=== PATIENT | female | born 1955 | race Caucasian/White ===

== ENCOUNTER 2016-04-22 16:10 | Emergency (ER) | payer OTHER ==
--- NOTE | 2016-04-22 16:57 | ERPHSYRPT ---
- History of Present Illness Time Seen by Provider: 04/22/16 16:57 Source: patient Exam Limitations: no limitations Patient Subjective Stated Complaint: pt co pain to left groin and bottom since last friday, no injury. pt states it hurts to sit Triage Nursing Assessment: pt alert , resp easy, skin w/d. was able to walk in , sitting is worse than movement Physician History: The patient is a 6-year-old female who presents with pain in her left groin left anterior and posterior thigh and left posterior knee for one week. She has a past medical history significant for a bulging disc with left sciatica. The pain she is experiencing currently is different than that she's had before. She denies any injury. Her past medical history significant for sciatica, diabetes. She also states she has leukemia that is in remission without any treatment. Timing/Duration: week(s) (1), gradual onset Severity: severe Modifying Factors: Improves With: nothing Associated Symptoms: denies symptoms Allergies/Adverse Reactions: No Known Drug Allergies Allergy (Unverified 04/22/16 16:24) Home Medications: Aspirin [Aspir 81] 81 mg DAILY 09/03/11 [History] Multivitamin [Multi-Day Vitamins] 1 ea DAILY 09/03/11 [History] Pregabalin 50 mg [Lyrica 50MG] 50 mg BID 09/03/11 [History] Metformin HCl 500 mg [Glucophage 500 MG] 500 mg BID 04/22/16 [History] Hx Tetanus, Diphtheria Vaccination/Date Given: No Hx Influenza Vaccination/Date Given: Yes Hx Pneumococcal Vaccination/Date Given: No Immunizations Up to Date: Yes - Review of Systems Constitutional: No Fever, No Chills Eyes: No Symptoms Ears, Nose, & Throat: No Symptoms Respiratory: No Cough, No Dyspnea Cardiac: No Chest Pain, No Edema, No Syncope Abdominal/Gastrointestinal: No Abdominal Pain, No Nausea, No Vomiting, No Diarrhea Genitourinary Symptoms: No Dysuria Musculoskeletal: Other (left thigh pain) Skin: No Rash Neurological: No Dizziness, No Focal Weakness, No Sensory Changes Psychological: No Symptoms Endocrine: No Symptoms Hematologic/Lymphatic: No Symptoms Immunological/Allergic: No Symptoms All Other Systems: Reviewed and Negative - Past Medical History Pertinent Past Medical History: Yes Neurological History: No Pertinent History ENT History: No Pertinent History Cardiac History: No Pertinent History Respiratory History: No Pertinent History Endocrine Medical History: Diabetes Type II Musculoskeletal History: Osteoarthritis GI Medical History: No Pertinent History History: No Pertinent History Psycho-Social History: No Pertinent History Female Reproductive Disorders: No Pertinent History Other Medical History: luekemia - Past Surgical History Past Surgical History: Yes Neuro Surgical History: Neurological Surgery Cardiac: No Pertinent History Respiratory: No Pertinent History Gastrointestinal: No Pertinent History Genitourinary: No Pertinent History Musculoskeletal: No Pertinent History Female Surgical History: Other Other Surgical History: back surg - Social History Smoking Status: Never smoker Exposure to second hand smoke: No Drug Use: none Patient Lives Alone: No - Female History Hx Last Menstrual Period: post - Nursing Vital Signs Nursing Vital Signs: Initial Vital Signs Temperature 97.8 F Temperature Source Oral Pulse Rate 76 Respiratory Rate 16 Blood Pressure [] 145/67 Pain Intensity 7 - Physical Exam General Appearance: moderate distress Eye Exam: PERRL/EOMI, eyes nml inspection Ears, Nose, Throat Exam: normal ENT inspection, TMs normal, pharynx normal, moist mucous membranes Neck Exam: normal inspection, non-tender, supple, full range of motion Respiratory Exam: normal breath sounds, lungs clear, No respiratory distress Cardiovascular Exam: regular rate/rhythm, normal heart sounds, normal peripheral pulses Gastrointestinal/Abdomen Exam: soft, normal bowel sounds, No tenderness, No mass Pelvic Exam: not done Rectal Exam: not done Back Exam: normal inspection, normal range of motion, other (straight leg raise is normal.), No CVA tenderness, No vertebral tenderness Extremity Exam: other (Tenderness to left groin, left anterior and posterior thigh, and posterior left knee.) Neurologic Exam: alert, oriented x 3, cooperative, normal mood/affect, nml cerebellar function, nml station & gait, sensation nml, No motor deficits Skin Exam: normal color, warm, dry, No rash Lymphatic Exam: No adenopathy SpO2 Interpretation: normal SpO2: 97 Oxygen Delivery: Room Air - CT Exams Abdomen/Pelvis CT Interpretation: Tele-radiologist Report (moderately distended gall bladder without stones, punctate nonobstructing R renal stone, fecal stasis without obstruction, per Dr Epperson.), Normal Appendix - Radiology Ultrasound Exam Left Venous Lower Extremity Ultrasound: discussed w/radiologist (discussed with cabinet installer), negative Ordered Tests: Active Orders 24 hr Category Date Time Status IV Insertion STAT Care 04/22/16 17:02 Active ABDOMEN AND PELVIS W/0 CONTRAS [CT] Stat Exams 04/22/16 18:34 Taken VENOUS UNILAT/LIMITED EXTREMIT [US] Stat Exams 04/22/16 17:05 Taken CBC W DIFF Stat Lab 04/22/16 17:22 Completed CMP Stat Lab 04/22/16 17:22 Completed D-DIMER QUANTITATION Stat Lab 04/22/16 17:22 Completed UA W/ MICROSCOPIC Stat Lab 04/22/16 17:22 Completed Medication Summary Discontinued Medications Generic Name Dose Route Start Last Admin Trade Name Meet PRN Reason Stop Dose Admin Morphine Sulfate 4 mg 04/22/16 17:02 04/22/16 17:20 Morphine Sulfate 4 Mg Inj IV 04/22/16 17:03 4 mg STAT ONE Administration Morphine Sulfate Confirm 04/22/16 17:18 Morphine Sulfate 4 Mg Inj Administered 04/22/16 17:19 Dose 4 mg .ROUTE .STK-MED ONE Ondansetron HCl 4 mg 04/22/16 17:02 04/22/16 17:20 Zofran 4 Mg/2 Ml Vial IV 04/22/16 17:03 4 mg STAT ONE Administration Ondansetron HCl Confirm 04/22/16 17:18 Zofran 4 Mg/2 Ml Vial Administered 04/22/16 17:19 Dose 4 mg .ROUTE .STK-MED ONE Lab/Rad Data: Laboratory Result Diagrams 04/22/16 17:22 04/22/16 17:22 Laboratory Results 04/22/16 04/22/16 04/22/16 Range/Units 17:22 17:22 17:22 WBC (4.0-10.5) K/mm3 RBC (4.1-5.4) M/mm3 Hgb (12.0-16.0) gm/dl Hct (35-47) % MCV (78-100) fl MCH (26-32) pg MCHC (32-36) g/dl RDW (11.5-14.0) % Plt Count (150-450) K/mm3 MPV (6-9.5) fl Gran % (36.0-66.0) % Lymphocytes % (24.0-44.0) % Monocytes % (0.0-12.0) % Eosinophils % (0.00-5.0) % Basophils % (0.0-0.4) % Basophils # (0-0.4) D-Dimer 0.317 (0.00-0.49) mg/L Sodium 144 (136-145) mEq/L Potassium 4.1 (3.5-5.1) mEq/L Chloride 103 (98-107) mEq/L Carbon Dioxide 30.2 (21-32) mEq/L Anion Gap 15.1 H (5-15) MEQ/L BUN 12 (9-20) mg/dL Creatinine 0.87 (0.55-1.30) mg/dl Estimated GFR > 60 ML/MIN Glucose 133 H (70-110) MG/DL Calcium 9.4 (8.5-10.1) mg/dL Total Bilirubin 0.3 (0.2-1.0) mg/dL AST 30 (15-37) U/L ALT 34 (12-78) U/L Alkaline Phosphatase 76 (46-116) U/L Serum Total Protein 7.7 (6.4-8.2) gm/dL Albumin 3.9 (3.4-5.0) g/dL Ur Collection Type CLEAN CATCH Urine Color YELLOW (YELLOW) Urine Appearance CLEAR (CLEAR) Urine pH 5.5 (5-6) Ur Specific [place] 1.020 (1.005-1.025) Urine Protein NEGATIVE (Negative) Urine Glucose (UA) NEGATIVE (NEGATIVE) mg/dL Urine Ketones NEGATIVE (NEGATIVE) Urine Nitrite NEGATIVE (NEGATIVE) Urine Bilirubin NEGATIVE (NEGATIVE) Urine Urobilinogen 0.2 (0-1) mg/dL Urine WBC (Auto) MODERATE (NEGATIVE) Urine RBC (Auto) NEGATIVE (0-5) Roverto/ul Urine Microscopic RBC 5-10 (0-2) /HPF Urine Microscopic WBC 15-25 (0-5) /HPF Ur Epithelial Cells MANY (FEW) /HPF Urine Bacteria MODERATE (NEGATIVE) /HPF Specimen Received 04/22/16 1720 04/22/16 Range/Units 17:22 WBC 9.1 (4.0-10.5) K/mm3 RBC 4.19 (4.1-5.4) M/mm3 Hgb 13.0 (12.0-16.0) gm/dl Hct 39.9 (35-47) % MCV 95.2 (78-100) fl MCH 31.0 (26-32) pg MCHC 32.6 (32-36) g/dl RDW 12.9 (11.5-14.0) % Plt Count 187 (150-450) K/mm3 MPV 10.5 H (6-9.5) fl Gran % 40.7 (36.0-66.0) % Lymphocytes % 51.7 H (24.0-44.0) % Monocytes % 6.6 (0.0-12.0) % Eosinophils % 1.0 (0.00-5.0) % Basophils % 0.0 (0.0-0.4) % Basophils # 0 (0-0.4) D-Dimer (0.00-0.49) mg/L Sodium (136-145) mEq/L Potassium (3.5-5.1) mEq/L Chloride (98-107) mEq/L Carbon Dioxide (21-32) mEq/L Anion Gap (5-15) MEQ/L BUN (9-20) mg/dL Creatinine (0.55-1.30) mg/dl Estimated GFR ML/MIN Glucose (70-110) MG/DL Calcium (8.5-10.1) mg/dL Total Bilirubin (0.2-1.0) mg/dL AST (15-37) U/L ALT (12-78) U/L Alkaline Phosphatase (46-116) U/L Serum Total Protein (6.4-8.2) gm/dL Albumin (3.4-5.0) g/dL Ur Collection Type Urine Color (YELLOW) Urine Appearance (CLEAR) Urine pH (5-6) Ur Specific [place] (1.005-1.025) Urine Protein (Negative) Urine Glucose (UA) (NEGATIVE) mg/dL Urine Ketones (NEGATIVE) Urine Nitrite (NEGATIVE) Urine Bilirubin (NEGATIVE) Urine Urobilinogen (0-1) mg/dL Urine WBC (Auto) (NEGATIVE) Urine RBC (Auto) (0-5) Roverto/ul Urine Microscopic RBC (0-2) /HPF Urine Microscopic WBC (0-5) /HPF Ur Epithelial Cells (FEW) /HPF Urine Bacteria (NEGATIVE) /HPF Specimen Received - Progress Progress: pain not gone completely - Departure Time of Disposition: 19:37 Departure Disposition: Home Clinical Impression: UTI (urinary tract infection) Condition: Stable Critical Care Time: No Additional Instructions: You have a UTI and constipation. You were given toradol 30 mg and rocephin 1 gm IV in the ER. Take cephalexin 500 mg twice a day for 10 days. Take Milk of Magnesia 2 Tbs at bedtime until cleared. Follow up in 2 days. Prescriptions: Cephalexin Monohydrate [Cephalexin] 500 mg PO BID #20 tablet
[2016-04-22] MEDS ORDERED: MORPHINE SULFATE 4 MG INJ IV ONE (17:02)
[2016-04-22] MEDS ORDERED: Zofran 4 MG/2 ML VIAL IV ONE (17:02)
[2016-04-22] MEDS ORDERED: MORPHINE SULFATE 4 MG INJ ONE (17:18)
[2016-04-22] MEDS ORDERED: Zofran 4 MG/2 ML VIAL ONE (17:18)
[2016-04-22 17:31] LABS: Granulocytes % 40.7 % (36.0-66.0); Lymphocytes % 51.7 % (24.0-44.0); Mean Cell Volume 95.2 fl (78-100); Mean Platelet Volume 10.5 fl (6-9.5); Monocytes % 6.6 % (0.0-12.0); Platelet Count 187 K/mm3 (150-450); Red Blood Count 4.19 M/mm3 (4.1-5.4); Red Cell Distribution Width 12.9 % (11.5-14.0); White Blood Count 9.1 K/mm3 (4.0-10.5)
[2016-04-22 18:04] LABS: Collection Type CLEAN CATCH; Ph 5.5 (5-6)
[2016-04-22 18:05] LABS: Bacteria MODERATE /HPF (NEGATIVE); COMPLETE URINE MICROSCOPIC? YES; Epithelial Cells MANY /HPF (FEW); WBC 15-25 /HPF (0-5)
[2016-04-22 18:26] LABS: ALBUMIN 3.9 g/dL (3.4-5.0); ALKALINE PHOSPHATASE 76 U/L (46-116); ANION GAP 15.1 MEQ/L (5-15); BILIRUBIN,TOTAL 0.3 mg/dL (0.2-1.0); BLOOD UREA NITROGEN 12 mg/dL (9-20); CHLORIDE 103 mEq/L (98-107); Carbon Dioxide 30.2 mEq/L (21-32); Glucose 133 MG/DL (70-110); Potassium 4.1 mEq/L (3.5-5.1); SGOT/AST 30 U/L (15-37); SGPT/ALT 34 U/L (12-78); SODIUM 144 mEq/L (136-145); Total Protein 7.7 gm/dL (6.4-8.2)
[2016-04-22] MEDS ORDERED: ROCEPHIN 1 Gm-D5w 50 ml Bag** 50 ML IV ONE ×2 (19:44→19:49)
[2016-04-22] MEDS ORDERED: TORAdol 30 mg Injection IV ONE (19:44)
[2016-04-22] MEDS ORDERED: TORAdol 30 mg Injection ONE (19:48)
[2016-04-22 20:04] VITALS: PULSE 68
[2016-04-22 20:34] VITALS: BP 128/62; O2SAT 97
--- NOTE | 2016-04-23 08:34 | XRAY ---
Indication: Left leg pain. Two-dimensional sonogram and color Doppler imaging of the major venous vessels of the left leg was performed. Comparison: None No thrombus seen in the examined deep venous vessels of the left leg including greater saphenous vein. Veins demonstrate normal compressibility. Venous waveforms are normal with and without augmentation. Impression: Left leg negative for DVT. Comment: Preliminary report was given.
--- NOTE | 2016-04-23 08:40 | XRAY ---
Indication: Left lower quadrant pain. Also chronic groin and back pain. Multiple contiguous axial images obtained through the abdomen and pelvis without contrast as ordered. Comparison: None Lung bases demonstrates minimal bibasilar fibrosis/scarring and calcified granulomas. No infiltrate, consolidation, or effusion. Heart is not enlarged. Noncontrasted stomach and bowel loops appear nonobstructed. Diffuse scattered colonic fecal debris throughout. Normal appendix. No free fluid/air. Gallbladder is moderately distended without gallstones or biliary distention. Punctate nonobstructing right renal calculus. Calcified splenic granulomas. Remaining liver, gallbladder, pancreas, spleen, adrenal glands, kidneys, ureters, bladder, and uterus appear unremarkable for noncontrast exam. Minimal aortic calcifications without AAA. Osseous structures intact with mild degenerative changes throughout the spine. No ventral or inguinal hernias. Impression: 1. Distended gallbladder without gallstones or biliary distention. Gallbladder sonogram may yield further information if clinically warranted. 2. No acute intra-abdominal/pelvic abnormalities on this noncontrast exam. 3. Fecal stasis without obstruction, nonobstructing right renal micro-calculus, and evidence for old granulomatous disease. CT DI 23.68
== END 2016-04-22 20:33 | disposition home or self-care (01) ==
LOC: ED 16:10
DX: N39.0 Urinary tract infection, site not specified (principal); C95.91 Leukemia, unspecified, in remission; E11.9 Type 2 diabetes mellitus without complications; Z79.84 Long term (current) use of oral hypoglycemic drugs; Z79.899 Other long term (current) drug therapy; M25.562 Pain in left knee; M79.652 Pain in left thigh; R10.9 Unspecified abdominal pain
CPT/HCPCS: 36000; 36415; 74176; 80053; 81000; 85025; 85379; 93971; 96374; 96375; 99284; J0696; J1885; J2270; J2405

== ENCOUNTER 2016-05-13 18:44 | Emergency (ER) | payer OTHER ==
[2016-05-13] MEDS ORDERED: ROCEPHIN 1 Gm-D5w 50 ml Bag** 50 ML IV ONE ×2 (19:34→20:07)
[2016-05-13] MEDS ORDERED: Norco 10/325 MG Tablet PO ONE (19:40)
--- NOTE | 2016-05-13 19:40 | ERPHSYRPT ---
- History of Present Illness Time Seen by Provider: 05/13/16 19:30 Source: patient Exam Limitations: clinical condition Patient Subjective Stated Complaint: PT REPORTS PINCHING FINGER WHILE WORKING ON BABY GAIT YESTERDAY-REPORTS WOKE THIS AM WITH A BLOOD BLISTER ON POINTER FINGER OF RIGHT HAND-REPORTS SEVERE PAIN-STATES SHE IS A DM Triage Nursing Assessment: PT PINK WARM ET [id number] TO MOVE EXTERMITY- BLISTERED AREA NOTED WITH NO DRAINAGE NOTED-RESP EASY ET NONLABORED Physician History: PATIENT PINCHED THE TIP OF HER RIGHT INDEX FINGER LAST NIGHT WHILE INSTALLING A BABY GATE, NOW HAS BRUISED BLISTER OVER TIP OF INDEX FINGER ASSOCIATED WITH RED STREAK. DENIES FEVER, CHILLS OR NIGHT SWEATS. Occurred: yesterday Method of Injury: other (PINCHED INJURY) Quality: constant Severity of Pain-Max: mild Severity of Pain-Current: mild Extremities Pain Location: 2nd finger: right Modifying Factors: Improves With: movement Associated Symptoms: none Allergies/Adverse Reactions: No Known Drug Allergies Allergy (Verified 05/13/16 18:56) Home Medications: Aspirin [Aspir 81] 81 mg PO DAILY 09/03/11 [History] Multivitamin [Multi-Day Vitamins] 1 ea PO DAILY 09/03/11 [History] Pregabalin 50 mg [Lyrica 50MG] 50 mg PO BID 09/03/11 [History] Metformin HCl 500 mg [Glucophage 500 MG] 500 mg BID 04/22/16 [History] Potassium Chloride 10 Meq Tab* [Klor Con 10 MEQ] 10 meq PO BID 05/13/16 [ History] Hx Tetanus, Diphtheria Vaccination/Date Given: Yes (1.5 YRS AGO) Hx Influenza Vaccination/Date Given: Yes Hx Pneumococcal Vaccination/Date Given: No Immunizations Up to Date: Yes - Review of Systems Constitutional: No Symptoms Musculoskeletal: Injury, Joint Pain, Joint Swelling Neurological: No Symptoms - Past Medical History Pertinent Past Medical History: Yes Neurological History: No Pertinent History ENT History: No Pertinent History Cardiac History: No Pertinent History Respiratory History: No Pertinent History Endocrine Medical History: Diabetes Type II Musculoskeletal History: No Pertinent History GI Medical History: No Pertinent History History: No Pertinent History Psycho-Social History: No Pertinent History Female Reproductive Disorders: No Pertinent History Other Medical History: luekemia - Past Surgical History Past Surgical History: Yes Neuro Surgical History: Neurological Surgery Cardiac: No Pertinent History Respiratory: No Pertinent History Gastrointestinal: No Pertinent History Genitourinary: No Pertinent History Musculoskeletal: No Pertinent History Female Surgical History: Other Other Surgical History: back surg - Social History Smoking Status: Never smoker Exposure to second hand smoke: No Drug Use: none Patient Lives Alone: No - Nursing Vital Signs Nursing Vital Signs: Initial Vital Signs Temperature 98.6 F Temperature Source Oral Pulse Rate 74 Respiratory Rate 18 Blood Pressure [] 148/73 Pain Intensity 5 - Physical Exam General Appearance: no apparent distress Hand Exam: swelling (THERE IS AN ECCHYMOTIC BULLAE FORMATION RIGHT INDEX FINGER DISTAL PHALANGX DORSAL RADIAL ASPECT 1CM X 6MM, TENDERNESS WITH ERYTHRMATOUS STREAK EXTENDING ACROSS RADIAL ASPECT INDEX FINGER ACROSS MCP JOINT TO RADIAL ASPECT OF RIGHT WRIST. THERE IS NO DRAINAGE NOTED) Neuro/Tendon Exam: normal sensation, normal motor functions Mental Status Exam: alert, oriented x 3, cooperative SpO2 Interpretation: normal SpO2: 98 Oxygen Delivery: Room Air - Radiology Exams Hand X-ray Interpretation: Interpreted by me (NO FRACTURE, SOFT TISSUE SWELLING) Ordered Tests: Active Orders 24 hr Category Date Time Status ACCUCHECK [Accucheck] STAT Care 05/13/16 20:55 Active IV Insertion STAT Care 05/13/16 19:30 Active HAND (MINIMUM 3 VIEWS) Stat Exams 05/13/16 19:35 Taken CBC W DIFF Stat Lab 05/13/16 20:07 Completed Manual Differential NC Stat Lab 05/13/16 20:07 Completed Medication Summary Discontinued Medications Generic Name Dose Route Start Last Admin Trade Name Freq PRN Reason Stop Dose Admin Acetaminophen/Hydrocodone Bitart 1 tab 05/13/16 19:40 05/13/16 20:17 Saxton 10/325 Mg Tablet PO 05/13/16 19:41 1 tab STAT ONE Administration Acetaminophen/Hydrocodone Bitart Confirm 05/13/16 20:07 Saxton 10/325 Mg Tablet Administered 05/13/16 20:08 Dose 1 tab .ROUTE .STK-MED ONE Ceftriaxone Sodium/Dextrose 50 mls @ 100 mls/hr 05/13/16 19:34 05/13/16 20:18 Rocephin 1 Gm-D5w 50 Ml Bag IV 05/13/16 20:03 100 mls/hr STAT ONE Administration Sodium Chloride 1,000 mls @ 100 mls/hr 05/13/16 19:45 05/13/16 20:18 Sodium Chloride 0.9% 1000 Ml IV 06/12/16 19:44 100 mls/hr .Q10H TOMAS Administration Ceftriaxone Sodium/Dextrose Confirm 05/13/16 20:07 Rocephin 1 Gm-D5w 50 Ml Bag Administered 05/13/16 20:08 Dose 50 mls @ ud IV .STK-MED ONE Sodium Chloride Confirm 05/13/16 20:07 Sodium Chloride 0.9% 1000 Ml Administered 05/13/16 20:08 Dose 1,000 mls @ ud .ROUTE .STK-MED ONE Lab/Rad Data: Laboratory Result Diagrams 05/13/16 20:07 Laboratory Results 05/13/16 Range/Units 20:07 WBC 12.5 H (4.0-10.5) K/mm3 RBC 4.40 (4.1-5.4) M/mm3 Hgb 13.3 (12.0-16.0) gm/dl Hct 41.5 (35-47) % MCV 94.3 (78-100) fl MCH 30.2 (26-32) pg MCHC 32.0 (32-36) g/dl RDW 12.8 (11.5-14.0) % Plt Count 196 (150-450) K/mm3 MPV 10.0 H (6-9.5) fl Segmented Neutrophils 54 (36.0-66.0) % Lymphocytes (Manual) 38 (24-44) % Monocytes (Manual) 7 (0.0-12.0) % Eosinophils (Manual) 1 (0.00-3.0) % Differential Comment NORMAL Platelet Estimate NORMAL (NORMAL) - Progress Progress Note: 05/13/16 19:44 PATIENT GIVEN IV FLUIDS NORMAL SALINE 100ML/HR, ROCEPHIN 1GM IVPB, NORCO 10/325 ORALLY 05/13/16 19:47 CON IS CURRENT Counseled pt/family regarding: lab results, diagnosis, need for follow-up, rad results - Departure Time of Disposition: 21:35 Departure Disposition: Home Clinical Impression: PUNCTURE WOUND RIGHT INDEX FINGER, CELLULITIS RIGHT INDEX FINGER Condition: Stable Critical Care Time: No Referrals: UMBERTO URENA [Primary Care Provider] - Instructions: Cellulitis -- Adult, Puncture Wound Additional Instructions: ANTIBIOTIC AUGMENTIN 875MG TWICE DAILY FOR 10 DAYS. NORCO 10/325 EVERY 4 HOURS OR PAIN NEEDED. WATCH FOR INCREASING SIGNS OF INFECTION, REDNESS, SWELLING OR DRAINAGE, FEVER OR CHILLS. FOLLOWUP WITH YOUR FAMILY PHYSICIAN IN 1 WEEK. Prescriptions: Hydrocodone/APAP 10/325 mg [Saxton 10/325 MG Tablet] 1 tab PO Q4H PRN PRN # 15 tablet PRN Reason: Pain Amox Tr/Potass Clav. 875 mg [Augmentin 875-125 Tablet] 875 mg PO BID #20 tablet
[2016-05-13] MEDS ORDERED: Sodium Chloride 0.9% 1000 ML 1,000 ML IV SCH (19:45)
[2016-05-13] MEDS ORDERED: Sodium Chloride 0.9% 1000 ML 1,000 ML ONE (20:07)
[2016-05-13] MEDS ORDERED: Norco 10/325 MG Tablet ONE (20:07)
[2016-05-13 20:10] LABS: Mean Cell Volume 94.3 fl (78-100); Mean Corpuscular Hemoglobin 30.2 pg (26-32); Platelet Count 196 K/mm3 (150-450); Red Cell Distribution Width 12.8 % (11.5-14.0); White Blood Count 12.5 K/mm3 (4.0-10.5)
[2016-05-13 21:48] VITALS: BP 148/73; PULSE 74
[2016-05-13 22:15] LABS: Eosinophil 1 % (0.00-3.0); Total Cells Counted 100
[2016-05-13 22:16] LABS: Platelet Estimate NORMAL (NORMAL)
[2016-05-14 05:53] VITALS: O2SAT 98
--- NOTE | 2016-05-14 09:04 | XRAY ---
Indication: Second digit puncture wound. Comparison: None 3 views of the right hand demonstrates focal soft tissue swelling adjacent to the 2nd/3rd DIP and degenerative heterotopic ossifications adjacent to the 1st MCP. No other bony, articular, or soft tissue abnormalities.
== END 2016-05-13 21:35 | disposition home or self-care (01) ==
LOC: ED 18:44
DX: S61.230A Puncture wound without foreign body of right index finger without damage to nail, initial encounter (principal); W23.0XXA Caught, crushed, jammed, or pinched between moving objects, initial encounter; L03.011 Cellulitis of right finger; E11.9 Type 2 diabetes mellitus without complications; Z79.84 Long term (current) use of oral hypoglycemic drugs
CPT/HCPCS: 36000; 36415; 73130; 82962; 85025; 99284; J0696; A9270-GY

== ENCOUNTER 2017-06-17 05:54 | Day surgery (SDC) | payer OTHER ==
[2017-06-17] MEDS ORDERED: Versed 2 MG/2 ML Injection IV ONE (05:55)
[2017-06-17] MEDS ORDERED: DIPRIVAN 200 MG/20 ML IV ONE (05:55)
[2017-06-17] MEDS ORDERED: Lactated Ringers 1,000 ML IV ONE (06:36)
[2017-06-17 09:08] VITALS: O2SAT 100
[2017-06-17 09:28] VITALS: BP 146/81; PULSE 60
--- NOTE | 2017-06-17 10:26 | OP ---
SURGERY DATE/TIME: 06/17/2017 0750 PREOPERATIVE DIAGNOSIS: Screening exam. POSTOPERATIVE DIAGNOSIS: Normal colon. PROCEDURE: Colonoscopy. SURGEON: Dr. Quintero. ANESTHESIA: Medications were given by the anesthesia department. HISTORY: The patient is a 62 year old white female presenting now for her first screening colonoscopy. She was appraised of the risks of the procedure including the risk of perforation, phlebitis, untoward reaction to medication, bleeding or missed lesions. The patient verbalized her understanding and desired to have the procedure performed. DESCRIPTION OF PROCEDURE: The patient was given the medications by the anesthesia department. She had continuous pulse oximetry, ECG monitoring, intermittent blood pressure monitoring and tidal CO2 monitoring during the examination. She was placed in left lateral decubitus position. A digital rectal examination was performed and revealed normal anal sphincter tone and no masses. The flexible Olympus pediatric colonoscope was used to intubate the rectum. A view of the colon was developed sequentially to the cecum. Upon insertion and withdrawal, including a retroflex view in the rectum, no mucosal lesions were encountered. The scope was removed from the patient who tolerated the procedure well and was sent back to OP recovery in good condition. The prep was noted to be fair.
== END 2017-06-17 09:30 | disposition home or self-care (01) ==
LOC: SDC 05:54
PROVIDERS: ATTEND Family Medicine
DX: Z12.11 Encounter for screening for malignant neoplasm of colon (principal); Z86.010 Personal history of colon polyps
CPT/HCPCS: J2250; J2704